=== PATIENT | female | born 1970 | race Native Hawaiian/Other Pacific Islander ===

== ENCOUNTER 2023-01-13 13:34 | Outpatient (CLI) | payer BC ==
[~2023-01-13 13:34] MED LIST: DILT-CD120 MG PO; GLYB5TAB65 PO; LANTUS100 MG/ML SC; METF100038 PO; VENLAFAXINE37.5 ER PO
== END 2023-01-13 17:00 | disposition home or self-care (01) ==
LOC: MAMMO 13:34
PROVIDERS: ATTEND Nurse Practitioner Family
DX: Z12.31 Encounter for screening mammogram for malignant neoplasm of breast (principal)